=== PATIENT | female | born 1960 | race Caucasian/White ===

== ENCOUNTER → 2020-12-29 | Day surgery (SDC) | payer OTHER ==
[~2020-12-29] MED LIST: Lidocaine 1% PF 5 ML VIAL ONE
[2020-12-29 13:03] VITALS: BP 148/72; TEMP 98.9
== END ==
LOC: CSHULT 11:19
PROVIDERS: ATTEND Otolaryngology Plastic Surgery within the Head & Neck
PROC: 0GBH3ZX Excision of Right Thyroid Gland Lobe, Percutaneous Approach, Diagnostic (ICD-10-PCS; principal; 2020-12-29)
DX: E04.1 Nontoxic single thyroid nodule (principal)
CPT/HCPCS: 10005; 76536; 88173

== ENCOUNTER 2023-03-07 09:46 | Outpatient (CLI) | payer BC | END 2023-03-07 09:47 | disposition home or self-care (01) | LOC: CSHULT 09:46 | PROVIDERS: ATTEND Otolaryngology Plastic Surgery within the Head & Neck | DX: E07.9 Disorder of thyroid, unspecified (principal); E04.2 Nontoxic multinodular goiter | CPT/HCPCS: 76536 ==